=== PATIENT | female | born 1955 | race African-American/Black ===

== ENCOUNTER 2017-04-14 13:10 | Outpatient (CLI) | payer MEDICARE, MEDICAID ==
--- NOTE | 2017-04-14 15:27 | RAD ---
THREE VIEWS CERVICAL SPINE: HISTORY: Paresthesia. COMPARISON: None. FINDINGS: Oblique projection demonstrates patent bilateral cervical spine neural foramina. On the A2 projectio n, there is mild degenerative change of the posterior elements. There is no malalignment. IMPRESSION: No radiographic evidence of significant foraminal stenosis. POS: [facility]
== END 2017-04-14 13:11 | disposition home or self-care (01) ==
LOC: MADRAD 13:10
PROVIDERS: ATTEND Physician Assistant
DX: R20.2 Paresthesia of skin (principal)
CPT/HCPCS: 72050

== ENCOUNTER 2017-05-25 19:33 | Emergency (ER) | payer MEDICAID, MEDICARE ==
[~2017-05-25 19:33] MED LIST: Iopamidol 370 76% 100 ML VIAL ONE; Sodium Chloride 0.9% 1,000 ML BAG ONE
[2017-05-25 20:12] LABS: #Basophils 0.1 thou/uL (0.0-0.2); #Eosinphils 0.1 thou/uL (0.0-0.7); #Lymphocytes 2.8 thou/uL (1.20-3.40); #Monocytes 0.4 thou/uL (0.11-0.59); #Neutrophils 3.4 thou/uL (1.40-6.50); %Basophils 1.2 % (0.0-1.0); %Eosinophils 1.5 % (0.0-10.0); %Lymphocytes 40.8 % (21.0-51.0); %Monocytes 6.5 % (0.0-10.0); %Neutrophils 50.1 % (42.0-75.0); Hemoglobin 14.4 g/dL (12.0-16.0); Mean Corpuscular HGB CONC 33.9 g/dL (32.0-36.0); Mean Corpuscular Volume 79.6 fl (81.0-99.0); Platelet Count 268 thou/uL (130-400); RBC Distribution Width 12.6 % (11.5-14.5); Red Blood Cell (RBC) Count 5.35 mill/uL (4.20-5.40); White Blood Cell (WBC) Count 6.8 thou/uL (4.8-10.8)
[2017-05-25] MEDS ORDERED: Mag-Al Plus 1200 MG/1200 MG/120 MG/30 ML UDCUP ONE (20:15)
[2017-05-25 20:16] LABS: Bilirubin Negative (Negative); Blood, Urine Negative (Negative); Clarity Clear (Clear); Glucose, Urine (Dipstick) >=1000 mg/dL (Negative); Leukocyte Negative (Negative); Nitrite Negative (Negative); Protein, Urine (Dipstick) Negative (Neg-Trace); Urobilinogen 0.2 mg/dL (0.2-1.0)
[2017-05-25 20:16] LABS: INR-International Normal Ratio 0.9; PTT 25.3 SEC (22.9-36.1); Prothrombin Time 12.4 SEC (12.0-14.7)
[2017-05-25] MEDS ORDERED: Pantoprazole 40 MG VIAL ONE (20:16)
[2017-05-25 20:27] LABS: ALT (SGPT) 18 U/L (8-55); AST (SGOT) 15 U/L (5-34); Albumin 4.5 g/dL (3.5-5.0); Alkaline Phosphatase 131 U/L (40-150); Anion Gap 17 mmol/L (10-20); BUN (Urea Nitrogen) 13 mg/dL (9.8-20.1); Bilirubin, Total 0.7 mg/dL (0.2-1.2); Calc. Creatinine Clearance 0 mL/min (70-130); Calcium 10.9 mg/dL (7.8-10.44); Carbon Dioxide 24 mmol/L (22-29); Chloride 99 mmol/L (98-107); Estimated GFR-MDRD 76; Globulin 3.7 g/dL (2.4-3.5); Glucose 465 mg/dL (70-105); Lipase 115 U/L (8-78); Protein, Total 8.2 g/dL (6.0-8.3); Sodium 136 mmol/L (136-145)
[2017-05-25] MEDS ORDERED: Morphine 10 MG/ML VIAL ONE (20:43)
[2017-05-25] MEDS ORDERED: Ondansetron HCl/PF 4 MG/2 ML Vial ONE (20:43)
--- NOTE | 2017-05-25 21:33 | CT ---
CT OF THE ABDOMEN AND PELVIS WITH IV CONTRAST: 05/25/17 INDICATION: History of mid epigastric abdominal pain for three days. FINDINGS: The lung bases are clear. There is a small hiatal hernia. The liver, spleen, pancreas and adrenal glands are normal appearing. There are renal vascular calcifi cations bilaterally. No hydronephrosis is evident. No solid renal lesion is demonstrated. No lymphad enopathy is grossly evident. There is some mild inflammatory stranding seen adjacent to the pancreati c head and uncinate process of the pancreas without evidence of a drainable fluid collection. There i s normal retrocecal appendix. No free fluid is evident within the pelvis. The bladder, rectum and per irectal soft tissues are normal appearing. There is a mild amount of retained stool within the colon. There are severe vascular calcifications involving the abdominal and pelvic vasculature. There is scattered degenerative and osteoarthritic change. No definite acute osseous abnormality is e vident. There is chondrocalcinosis seen within the symphysis pubis which can be seen with entity such as CPP deposition disease. IMPRESSION: 1. Inflammatory infiltration seen surrounding the pancreatic head and uncinate process suspiciou s for noncomplicated acute pancreatitis. Recommend correlation with clinical examination. No drainabl e fluid collection is grossly evident. 2. Small hiatal hernia. 3. Severe vascular calcifications of the abdominal and pelvic vasculature. 4. Mild amount of retained stool within the colon. 5. Calcifications within the symphysis pubis can be seen with CPPD deposition disease. POS: [facility]
== END 2017-05-25 22:20 | disposition home or self-care (01) ==
LOC: MADERS 19:33
DX: K85.90 Acute pancreatitis without necrosis or infection, unspecified (principal); E11.9 Type 2 diabetes mellitus without complications; I10 Essential (primary) hypertension; I25.2 Old myocardial infarction; Z79.4 Long term (current) use of insulin; F17.210 Nicotine dependence, cigarettes, uncomplicated; Z79.899 Other long term (current) drug therapy
CPT/HCPCS: 36416; 74177; 80053; 81003; 83690; 84478; 85025; 85610; 85730; 96361; 96374; 96375; C9113; J2270; J2405; J7050

== ENCOUNTER 2017-06-15 14:35 | Outpatient (CLI) | payer MEDICARE, MEDICAID ==
[~2017-06-15 14:35] MED LIST changes: -Sodium Chloride 0.9% 1,000 ML BAG ONE
--- NOTE | 2017-06-15 15:46 | CT ---
CT ABDOMEN AND PELVIS WITH CONTRAST: HISTORY: Hypoplastic polyps. COMPARISON: Exam of 05/25/17. FINDINGS: Lung bases are clear. No pericardial effusion. Small sliding hiatal hernia. The liver and gallbladder are unremarkable as well as the spleen. On the previous examination, there was some inflammation around the pancreatic head which was described which is no longer apparent. Low-grade prominence of the pancreatic with sequelae of prior bouts of pancreatitis. There is a hypo dense focus within the uncinate process of the pancreas measuring approximately 7 mm. The aortoiliac contour is nonaneurysmal. Moderate vascular calcifications. No dilated loops of large or small bowel. The appendix is visualized and is normal. No adenopathy. There are bilateral renal calculi measuring up to 3 mm. Moderate narrowing of the symphysis pubis with hypertrophic osteophyte formation as well as calcifica tions in the central articular disk. There are subchondral cysts of the acetabulum as well as large hypertrophic osteophytes. There is vacuum disk phenomenon within the left iliac wing, degenerative in nature. IMPRESSION: 1. No acute inflammatory process. 2. Interval resolution of the pancreatitis. 3. A 7 mm hypodensity in the uncinate process of the pancreas. A followup MRI with pancreatic inocencio col in 6 months-1 year is recommended. 4. Small sliding hiatal hernia. 5. Small renal calcifications measuring less than 3 mm. This is superimposed on renovascular calcif ications. POS: [facility]
== END 2017-06-15 14:36 | disposition home or self-care (01) ==
LOC: MADCT 14:35
PROVIDERS: ATTEND Physician Assistant
DX: R10.9 Unspecified abdominal pain (principal); R93.3 Abnormal findings on diagnostic imaging of other parts of digestive tract; K44.9 Diaphragmatic hernia without obstruction or gangrene; N28.89 Other specified disorders of kidney and ureter
CPT/HCPCS: 36415; 74177; 82565

== ENCOUNTER 2018-02-22 12:13 | Emergency (ER) | payer MEDICARE, MEDICAID ==
[~2018-02-22 12:13] MED LIST changes: -Iopamidol 370 76% 100 ML VIAL ONE; +Iopamidol 370 76% 125 ML VIAL FS ONE
[2018-02-22 12:35] LABS: #Basophils 0.1 thou/uL (0.0-0.2); #Eosinphils 0.1 thou/uL (0.0-0.7); #Lymphocytes 2.3 thou/uL (1.20-3.40); #Monocytes 0.5 thou/uL (0.11-0.59); #Neutrophils 3.1 thou/uL (1.40-6.50); %Basophils 1.5 % (0.0-1.0); %Eosinophils 1.9 % (0.0-10.0); %Lymphocytes 37.7 % (21.0-51.0); Hemoglobin 14.3 g/dL (12.0-16.0); Mean Corpuscular HGB CONC 31.6 g/dL (32.0-36.0); Mean Corpuscular Hemoglobin 26.3 pg (27.0-31.0); Mean Corpuscular Volume 83.1 fL (78.0-98.0); Mean Platelet Volume 10.2 fL (7.4-10.4); Platelet Count 313 thou/uL (130-400); RBC Distribution Width 12.6 % (11.5-14.5); Red Blood Cell (RBC) Count 5.45 mill/uL (4.20-5.40); White Blood Cell (WBC) Count 6.1 thou/uL (4.8-10.8)
[2018-02-22 12:50] LABS: ALT (SGPT) 17 U/L (8-55); AST (SGOT) 16 U/L (5-34); Albumin 4.5 g/dL (3.4-4.8); Alkaline Phosphatase 112 U/L (40-150); Anion Gap 14 mmol/L (10-20); BUN (Urea Nitrogen) 14 mg/dL (9.8-20.1); Bilirubin, Total 0.9 mg/dL (0.2-1.2); Calc. Creatinine Clearance 0 mL/min (70-130); Calcium 10.5 mg/dL (7.8-10.44); Carbon Dioxide 27 mmol/L (23-31); Chloride 103 mmol/L (98-107); Estimated GFR-MDRD 78; Globulin 3.7 g/dL (2.4-3.5); Potassium 3.8 mmol/L (3.5-5.1); Protein, Total 8.2 g/dL (6.0-8.3); Sodium 140 mmol/L (136-145)
[2018-02-22 12:51] LABS: Glucose 233 mg/dL (80-115)
--- NOTE | 2018-02-22 13:21 | CT ---
CT BRAIN: Date: 02/22/18 CLINICAL HISTORY: Right-sided facial droop. FINDINGS: Comparison with 10/31/08. The ventricular system is normal in size and morphology. There is no evidence for intracranial hemorr flaquito or mass effect. The extracranial soft tissues and osseous structures demonstrate no evidence for an acute abnormality. Partially opacified and incompletely aerated right mastoid air cell is again s een. IMPRESSION: No evidence for intracranial hemorrhage or mass effect. POS: [facility]
--- NOTE | 2018-02-22 13:29 | CT ---
CTA NECK AND INTRACRANIAL CTA: HISTORY: Altered mental status. Facial drooping. Right-sided headache. TECHNIQUE: Contrast enhanced CTA images of the carotid arteries and intracranial CTA is performed, and 2D and 3D reconstructed images are performed on an independent 3D work station. FINDINGS: Images demonstrate atherosclerotic calcifications seen in the aortic arch. The right brachiocephalic artery is patent. The right and left common carotid arteries demonstrate no significant stenosis or plaques. Some minimal bilateral proximal ICA noncalcified and calcified plaques seen, resulting in minimal, approximately 10% to 15% bilateral ICA stenosis. More distally, the internal carotid arteri es are patent. Normal flow is seen in the right and left vertebral arteries, as well as in the basilar arteries, and in the intracranial posterior circulation. The GIULIANA and MCA bilaterally are also patent without evid ence of significant disease. IMPRESSION: Normal carotid and intracranial computed tomography angiography. POS: [facility]
== END 2018-02-22 14:53 | disposition home or self-care (01) ==
LOC: MADERS 12:13
DX: H43.811 Vitreous degeneration, right eye (principal); I25.2 Old myocardial infarction; E11.9 Type 2 diabetes mellitus without complications; Z79.4 Long term (current) use of insulin; I10 Essential (primary) hypertension; F17.210 Nicotine dependence, cigarettes, uncomplicated; Z79.899 Other long term (current) drug therapy; Z79.84 Long term (current) use of oral hypoglycemic drugs
CPT/HCPCS: 36416; 70450; 70496; 70498; 80053; 85025; 93005; 94760

== ENCOUNTER 2018-03-31 08:10 | Emergency (ER) | payer MEDICARE, MEDICAID ==
[2018-03-31] MEDS ORDERED: Ketorolac Tromethamine 30 MG/ML VIAL ONE (09:23)
[2018-03-31] MEDS ORDERED: Cyclobenzaprine 10 MG TAB ONE (09:23)
--- NOTE | 2018-03-31 10:06 | RAD ---
THREE VIEWS CERVICAL SPINE: HISTORY: Pain. COMPARISON: None. FINDINGS: Suboptimal evaluation of the odontoid process as well as the lateral mass on the open mouth projectio n. On the AP projection, mild facet hypertrophy. No malalignment. No fracture. There is no prevertebral soft tissue swelling. Predental space is normal. Cervical spine vertebral body height is maintained. There is no fracture. Disk space heights are preserved. No malalignment . IMPRESSION: No significant degenerative change. If there is concern for fracture, consider CT. If there is conc lit for degenerative change, consider MRI nonemergently. POS: [facility]
== END 2018-03-31 10:16 | disposition home or self-care (01) ==
LOC: MADERS 08:10
DX: S16.1XXA Strain of muscle, fascia and tendon at neck level, initial encounter (principal); I25.2 Old myocardial infarction; E11.9 Type 2 diabetes mellitus without complications; Z79.4 Long term (current) use of insulin; I10 Essential (primary) hypertension; F17.210 Nicotine dependence, cigarettes, uncomplicated; Z79.899 Other long term (current) drug therapy; X58.XXXA Exposure to other specified factors, initial encounter
CPT/HCPCS: 72040; 96372; J1885

== ENCOUNTER 2018-04-18 14:21 | Emergency (ER) | payer MEDICARE, MEDICAID ==
[2018-04-18] MEDS ORDERED: Acetaminophen 500 MG TAB ONE (15:41)
[2018-04-18 16:17] LABS: Hemoglobin 13.9 g/dL (12.0-16.0); Lymphocytes 31 % (21-51); MDiff Complete? YES; Mean Corpuscular HGB CONC 32.6 g/dL (32.0-36.0); Mean Corpuscular Hemoglobin 26.9 pg (27.0-31.0); Mean Corpuscular Volume 82.7 fL (78.0-98.0); Mean Platelet Volume 8.2 fL (7.4-10.4); Monocytes 4 % (0-10); Neutrophil 65 % (42-75); Platelet Count 297 thou/uL (130-400); Platelet Morphology Comment Appears Adequate; RBC Distribution Width 13.2 % (11.5-14.5); Red Blood Cell (RBC) Count 5.18 mill/uL (4.20-5.40); White Blood Cell (WBC) Count 6.4 thou/uL (4.8-10.8)
[2018-04-18 16:20] LABS: ALT (SGPT) 19 U/L (8-55); AST (SGOT) 17 U/L (5-34); Albumin 4.4 g/dL (3.4-4.8); Alkaline Phosphatase 112 U/L (40-150); Anion Gap 16 mmol/L (10-20); BUN (Urea Nitrogen) 15 mg/dL (9.8-20.1); Bilirubin, Total 0.4 mg/dL (0.2-1.2); Calc. Creatinine Clearance 0 mL/min (70-130); Calcium 10.7 mg/dL (7.8-10.44); Carbon Dioxide 26 mmol/L (23-31); Chloride 103 mmol/L (98-107); Estimated GFR-MDRD 83; Globulin 3.6 g/dL (2.4-3.5); Glucose 230 mg/dL (80-115); Potassium 4.1 mmol/L (3.5-5.1); Sodium 141 mmol/L (136-145)
--- NOTE | 2018-04-18 16:32 | RAD ---
CHEST TWO VIEWS: 04/18/18 HISTORY: Elevated blood pressure. Headache. History of prior hypertension and bypass graft. COMPARISON: 11/29/17. FINDINGS: Postop midline sternotomy. Heart size is within normal limits. The lungs are clear. No confluent pneu monia, overt edema, or pleural effusion. IMPRESSION: No acute intrathoracic disease. Postop midline sternotomy. Atherosclerosis of the aorta. No new proce ss. POS: [facility]
== END 2018-04-18 17:13 | disposition home or self-care (01) ==
LOC: MADERS 14:21
DX: I10 Essential (primary) hypertension (principal); E11.9 Type 2 diabetes mellitus without complications; I25.2 Old myocardial infarction; F17.210 Nicotine dependence, cigarettes, uncomplicated; Z71.6 Tobacco abuse counseling; Z79.899 Other long term (current) drug therapy; Z79.4 Long term (current) use of insulin
CPT/HCPCS: 36415; 71046; 80053; 83880; 84484; 85025; 93005; 94760; 99406

== ENCOUNTER 2019-03-07 11:34 | Emergency (ER) | payer MEDICARE, MEDICAID ==
--- NOTE | 2019-03-07 13:59 | RAD ---
CHEST TWO VIEWS: HISTORY: Cough. COMPARISON: 04/18/2018 FINDINGS: Postop midline sternotomy. Heart size is within normal limits. No confluent pneumonia, overt edema or pleural effusion. IMPRESSION: 1. No significant acute intrathoracic disease. 2. Midline sternotomy. 3. Stable appearance from prior study. POS: [facility]
[2019-03-07] MEDS ORDERED: Oseltamivir 75 MG CAP ONE (14:10)
[2019-03-07] MEDS ORDERED: Acetaminophen/Codeine 30-300mg Tablet ONE (14:33)
== END 2019-03-07 14:44 | disposition home or self-care (01) ==
LOC: MADERS 11:34
DX: J10.1 Influenza due to other identified influenza virus with other respiratory manifestations (principal); I25.2 Old myocardial infarction; E11.9 Type 2 diabetes mellitus without complications; F17.210 Nicotine dependence, cigarettes, uncomplicated; Z79.82 Long term (current) use of aspirin; Z79.899 Other long term (current) drug therapy
CPT/HCPCS: 71046; 87804

== ENCOUNTER 2019-06-04 11:48 | Emergency (ER) | payer MEDICARE, MEDICAID ==
--- NOTE | 2019-06-04 13:55 | RAD ---
THREE VIEWS RIGHT SHOULDER: 06/04/19 PROVIDED CLINICAL HISTORY: Pain status post injury. FINDINGS: There is mineralization noted adjacent to the greater tuberosity having a somewhat amorphous appearan ce on the externally rotated views suggesting changes related to calcific peritendinitis. The glenohu meral relationship appears normal. The visualized right lung field appears clear. Subacromial space a ppears preserved. Acromioclavicular joint osteoarthrosis is noted. IMPRESSION: Findings suggesting calcific peritendinitis. POS: [facility]
== END 2019-06-04 13:59 | disposition home or self-care (01) ==
LOC: MADERS 11:48
DX: S43.401A Unspecified sprain of right shoulder joint, initial encounter (principal); M65.20 Calcific tendinitis, unspecified site; I10 Essential (primary) hypertension; F17.210 Nicotine dependence, cigarettes, uncomplicated; I25.2 Old myocardial infarction; E11.9 Type 2 diabetes mellitus without complications; Z79.4 Long term (current) use of insulin; Z79.899 Other long term (current) drug therapy; X50.1XXA Overexertion from prolonged static or awkward postures, initial encounter

== ENCOUNTER 2019-07-04 09:09 | Outpatient (CLI) | payer MEDICARE, MEDICAID ==
[2019-07-04] MEDS ORDERED: Iopamidol 370 76% 125 ML VIAL FS ONE (10:15)
--- NOTE | 2019-07-04 11:48 | CT ---
EXAM: CT Abdomen W MONICO Con PROVIDED CLINICAL HISTORY: Chronic pancreatitis with epigastric abdominal pain. COMPARISON: 05/25/2017 FINDINGS: Mild atelectasis is present at each lung base. Small hiatal hernia is present. There is a small adrenal nodule measuring 1.5 cm which is stable in size and appearance compared to lanette fernandes on 05/25/2017. This nodule is difficult to characterize as an adrenal adenoma based on the current exam but is stable in size. Right adrenal gland demonstrates a normal CT appearance. Subcentimeter too small to characterize hypodense lesions are seen in the right kidney. There are pun ctate calcifications seen involving each kidney majority of which appear to represent vascular type calcifications, but there are also probable tiny 3 mm or less nonobstructing renal calculi. There is an approximately 9 mm hypodense lesion seen in the uncinate process of the pancreas which is stable in size compared to MRI abdomen on 01/17/2018. No peripancreatic inflammatory stranding is seen, no peripancreatic fluid collection is identified. The liver and spleen demonstrate a normal CT appearance. Vascular calcifications are seen in the abdominal aorta and involving the visualized iliac arteries. Moderate amount retained fecal material is seen throughout the colon. Loops of small bowel are normal in caliber. No other interval change. IMPRESSION: 1. Stable approximately 9 mm hypodense lesion in the uncinate process of the pancreas. No pancreatic or peripancreatic inflammatory stranding is seen and there is no peripancreatic fluid collection identified. 2. Probable tiny 3 mm less nonobstructing bilateral renal calculi. 3. Small hiatal hernia. 4. Stable small left adrenal nodule.
== END 2019-07-04 09:10 | disposition home or self-care (01) ==
LOC: MADCT 09:09
PROVIDERS: ATTEND Physician Assistant
DX: K86.1 Other chronic pancreatitis (principal); K44.9 Diaphragmatic hernia without obstruction or gangrene; E27.8 Other specified disorders of adrenal gland; K86.89 Other specified diseases of pancreas
CPT/HCPCS: 36415; 74170; 82565; Q9967

== ENCOUNTER 2020-05-25 13:54 | Emergency (ER) | payer MEDICARE, MEDICAID ==
[~2020-05-25 13:54] MED LIST changes: +Acyclovir 200 mg Capsule ONE; -Iopamidol 370 76% 125 ML VIAL FS ONE
[2020-05-25] MEDS ORDERED: Nitroglycerin 2% Ointment 1 INCH/1 GM Packet ONE (15:04)
[2020-05-25 15:05] LABS: Bilirubin Negative (Negative); Blood, Urine Small (Negative); Clarity Clear (Clear); Glucose, Urine (Dipstick) 500 mg/dL (Negative); Ketone, Urine Negative (Negative); Leukocyte Negative (Negative); Nitrite Negative (Negative); Protein, Urine (Dipstick) > or equal to 300 mg/dL (Neg-Trace); Specific Gravity, Urine 1.015 (1.005-1.030); Urobilinogen 0.2 mg/dL (Less than 2); WBC/HPF 0-3 HPF (0-3)
[2020-05-25 15:06] LABS: Yeast-Budding Rare HPF (None Seen)
[2020-05-25 15:08] LABS: Amphetamine Not Detected (NotDetected); Barbiturates Screen Not Detected (NotDetected); Benzodiazepine Screen Not Detected (NotDetected); Cocaine Metabolite Screen Not Detected (NotDetected); Medtox Control Line Valid? VALID (VALID); Methadone Not Detected (NotDetected); Methamphetamine Not Detected (NotDetected); Opiate Screen Not Detected (NotDetected); Oxycodone Screen Not Detected (NotDetected); Phencyclidine (PCP) Not Detected (NotDetected); THC/Cannabinoid Screen Not Detected (NotDetected); Tricyclic Screen Not Detected (NotDetected)
[2020-05-25] MEDS ORDERED: Aspirin Chewable 81 MG TAB ONE (15:28)
[2020-05-25 15:29] LABS: #Basophils 0.1 thou/uL (0.0-0.2); #Eosinphils 0.1 thou/uL (0.0-0.7); #Lymphocytes 2.6 thou/uL (1.20-3.40); #Monocytes 0.5 thou/uL (0.11-0.59); #Neutrophils 3.7 thou/uL (1.40-6.50); %Basophils 1.1 % (0.0-1.0); %Eosinophils 1.4 % (0.0-10.0); %Lymphocytes 36.9 % (21.0-51.0); %Monocytes 7.2 % (0.0-10.0); %Neutrophils 53.3 % (42.0-75.0); Mean Corpuscular HGB CONC 30.2 g/dL (32.0-36.0); Mean Corpuscular Hemoglobin 25.7 pg (27.0-31.0); Mean Corpuscular Volume 85.1 fL (78.0-98.0); Mean Platelet Volume 10.3 fL (7.4-10.4); Platelet Count 300 thou/uL (130-400); RBC Distribution Width 14.3 % (11.5-14.5); Red Blood Cell (RBC) Count 5.46 mill/uL (4.20-5.40)
[2020-05-25 15:37] LABS: INR-International Normal Ratio 0.9; PTT 27.3 sec (22.9-36.1); Prothrombin Time 11.8 sec (12.0-14.7)
[2020-05-25 15:46] LABS: Acetaminophen Less than 6.0 mcg/mL (10.0-30.0); Alcohol Less than 10 mg/dL (Less than 10); CK (CPK) 120 U/L (29-168); Salicylate Less than 8.0 mg/dL (15.0-30.0)
[2020-05-25 15:48] LABS: ALT (SGPT) 19 U/L (8-55); AST (SGOT) 18 U/L (5-34); Albumin 4.3 g/dL (3.4-4.8); Alkaline Phosphatase 130 U/L (40-110); Anion Gap 13 mmol/L (10-20); BUN (Urea Nitrogen) 13 mg/dL (9.8-20.1); Bilirubin, Total 0.7 mg/dL (0.2-1.2); Calc. Creatinine Clearance 0 mL/min (70-130); Carbon Dioxide 29 mmol/L (23-31); Chloride 104 mmol/L (98-107); Globulin 3.5 g/dL (2.4-3.5); Glucose 135 mg/dL (80-115); Potassium 4.1 mmol/L (3.5-5.1); Protein, Total 7.8 g/dL (5.8-8.1); Sodium 142 mmol/L (136-145)
[2020-05-25 16:11] LABS: CKMB 1.9 ng/mL (0-6.6)
[2020-05-25] MEDS ORDERED: predniSONE 20 MG TAB ONE (16:18)
[2020-05-25] MEDS ORDERED: Acyclovir 200 mg Capsule ONE (16:20)
[2020-05-25] MEDS ORDERED: hydrALAZINE 10 MG TAB ONE (17:04)
[2020-05-25] MEDS ORDERED: hydrALAZINE 20 MG/ML VIAL ONE (17:06)
== END 2020-05-25 21:32 | disposition short-term general hospital (02) ==
LOC: MADERS 13:54
DX: R29.810 Facial weakness (principal); I16.0 Hypertensive urgency; R29.706 NIHSS score 6; I25.2 Old myocardial infarction; E11.9 Type 2 diabetes mellitus without complications; I10 Essential (primary) hypertension; F17.210 Nicotine dependence, cigarettes, uncomplicated; Z79.4 Long term (current) use of insulin; Z79.899 Other long term (current) drug therapy; Z79.82 Long term (current) use of aspirin
CPT/HCPCS: 70450; 71045; 80053; 80306; 80307; 81003; 81015; 82550; 82553; 84443; 84484; 85025; 85610; 85730; 93005; 96374; J0360; J7512

== ENCOUNTER 2020-07-10 08:56 | Outpatient (CLI) | payer MEDICARE, MEDICAID | END 2020-07-10 08:57 | disposition home or self-care (01) | LOC: MADRAD 08:56 | PROVIDERS: ATTEND Physician Assistant | DX: M54.5 Low back pain (principal); M47.816 Spondylosis without myelopathy or radiculopathy, lumbar region; M16.0 Bilateral primary osteoarthritis of hip; I70.90 Unspecified atherosclerosis; K59.00 Constipation, unspecified | CPT/HCPCS: 72100 ==

== ENCOUNTER 2020-08-23 17:55 | Emergency (ER) | payer MEDICARE, MEDICAID | END 2020-08-23 19:08 | disposition home or self-care (01) | LOC: MADERS 17:55 | DX: R23.3 Spontaneous ecchymoses (principal); N64.59 Other signs and symptoms in breast; Z71.6 Tobacco abuse counseling; R00.1 Bradycardia, unspecified; I25.10 Atherosclerotic heart disease of native coronary artery without angina pectoris; I25.2 Old myocardial infarction; I10 Essential (primary) hypertension; E11.9 Type 2 diabetes mellitus without complications; F17.210 Nicotine dependence, cigarettes, uncomplicated; Z79.4 Long term (current) use of insulin | CPT/HCPCS: 99406 ==

== ENCOUNTER 2020-11-17 16:14 | Outpatient (CLI) | payer MEDICARE, MEDICAID | END 2020-11-17 16:15 | disposition home or self-care (01) | LOC: MADRAD 16:14 | PROVIDERS: ATTEND Physician Assistant | DX: G44.209 Tension-type headache, unspecified, not intractable (principal); M47.812 Spondylosis without myelopathy or radiculopathy, cervical region | CPT/HCPCS: 72040 ==

== ENCOUNTER 2020-12-30 14:59 | Emergency (ER) | payer MEDICARE, MEDICAID | END 2020-12-30 17:23 | disposition home or self-care (01) | LOC: MADERS 14:59 | DX: J06.9 Acute upper respiratory infection, unspecified (principal); I10 Essential (primary) hypertension; I25.2 Old myocardial infarction; F17.210 Nicotine dependence, cigarettes, uncomplicated; Z79.899 Other long term (current) drug therapy; Z79.82 Long term (current) use of aspirin | CPT/HCPCS: 99283 ==

== ENCOUNTER 2021-01-14 12:14 | Outpatient (CLI) | payer MEDICARE, MEDICAID | END 2021-01-14 12:15 | disposition home or self-care (01) | LOC: MADRAD 12:14 | PROVIDERS: ATTEND Physician Assistant | DX: R05.9 Cough, unspecified (principal); Z98.890 Other specified postprocedural states | CPT/HCPCS: 71046 ==

== ENCOUNTER 2021-02-21 09:54 | Emergency (ER) | payer MEDICARE, MEDICAID ==
[2021-02-21] MEDS ORDERED: Ketorolac Tromethamine 30 MG/ML VIAL ONE (10:26)
== END 2021-02-21 10:55 | disposition home or self-care (01) ==
LOC: MADERS 09:54
DX: S16.1XXA Strain of muscle, fascia and tendon at neck level, initial encounter (principal); I10 Essential (primary) hypertension; E11.9 Type 2 diabetes mellitus without complications; I25.2 Old myocardial infarction; F17.210 Nicotine dependence, cigarettes, uncomplicated; I25.10 Atherosclerotic heart disease of native coronary artery without angina pectoris; I73.9 Peripheral vascular disease, unspecified; X58.XXXA Exposure to other specified factors, initial encounter; Z79.4 Long term (current) use of insulin; Z79.82 Long term (current) use of aspirin; Z79.899 Other long term (current) drug therapy
CPT/HCPCS: 96372; 99283; J1885

== ENCOUNTER 2021-03-21 11:07 | Emergency (ER) | payer MEDICARE, MEDICAID ==
[2021-03-21] MEDS ORDERED: Acetaminophen 325 MG TAB ONE (12:40)
[2021-03-21] MEDS ORDERED: Amlodipine 5 MG TAB ONE (12:40)
[2021-03-21] MEDS ORDERED: Hydrochlorothiazide 25 MG TAB ONE (12:40)
== END 2021-03-21 13:18 | disposition home or self-care (01) ==
LOC: MADERS 11:07
DX: S50.11XA Contusion of right forearm, initial encounter (principal); S09.90XA Unspecified injury of head, initial encounter; I10 Essential (primary) hypertension; M79.621 Pain in right upper arm; M25.521 Pain in right elbow; R51.9 Headache, unspecified; I25.2 Old myocardial infarction; E11.9 Type 2 diabetes mellitus without complications; F17.210 Nicotine dependence, cigarettes, uncomplicated; W10.2XXA Fall (on)(from) incline, initial encounter; Z79.4 Long term (current) use of insulin; Z79.82 Long term (current) use of aspirin; Z79.899 Other long term (current) drug therapy

== ENCOUNTER 2022-06-03 19:45 | Emergency (ER) | payer OTHER | END 2022-06-03 20:47 | disposition home or self-care (01) | LOC: MADERS 19:45 | DX: S90.32XA Contusion of left foot, initial encounter (principal); I10 Essential (primary) hypertension; E11.9 Type 2 diabetes mellitus without complications; F17.210 Nicotine dependence, cigarettes, uncomplicated; Z79.4 Long term (current) use of insulin; Z79.82 Long term (current) use of aspirin; Z79.899 Other long term (current) drug therapy; Z79.02 Long term (current) use of antithrombotics/antiplatelets; X58.XXXA Exposure to other specified factors, initial encounter ==

== ENCOUNTER 2022-12-29 10:12 | Emergency (ER) | payer OTHER, MEDICAID ==
[2022-12-29] MEDS ORDERED: Ketorolac Tromethamine 30 MG/ML VIAL ONE (11:27)
== END 2022-12-29 12:24 | disposition home or self-care (01) ==
LOC: MADERS 10:12
DX: M19.011 Primary osteoarthritis, right shoulder (principal); E11.9 Type 2 diabetes mellitus without complications; I10 Essential (primary) hypertension; Z79.82 Long term (current) use of aspirin; Z79.899 Other long term (current) drug therapy; Z79.4 Long term (current) use of insulin; Z23 Encounter for immunization
CPT/HCPCS: J1885

== ENCOUNTER 2024-02-21 16:06 | Outpatient (CLI) | payer MEDICAID, OTHER | END 2024-02-21 16:07 | disposition home or self-care (01) | LOC: MADRAD 16:06 | PROVIDERS: ATTEND Physician Assistant | DX: M25.472 Effusion, left ankle (principal); M77.52 Other enthesopathy of left foot and ankle ==